=== PATIENT | female | born 1985 | race Caucasian/White ===

== ENCOUNTER 2023-12-08 06:36 | Day surgery (SDC) | payer OTHER ==
[2023-11-23 13:00] LABS: HEMATOCRIT 38.1 % (37.0-47.0); HEMOGLOBIN 12.9 g/dL (12.0-16.0); MEAN CORPUSCULAR HEMOGLOBIN 32.1 pg (28.0-32.0); MEAN CORPUSCULAR HGB CONC 33.9 g/dL (32.0-36.0); MEAN CORPUSCULAR VOLUME 94.8 fL (83.0-99.0); MEAN PLATELET VOLUME 9.2 fL (9.4-12.3); PLATELET COUNT,PLT 320 K/uL (150-400); RED BLOOD CELL COUNT 4.02 M/uL (4.10-5.30)
[2023-11-23 13:26] LABS: ALBUMIN 3.6 g/dL (3.4-5.0); BILIRUBIN TOTAL 1.6 mg/dL (0.2-1.0); CALCIUM 8.7 mg/dL (8.5-10.1); CARBON DIOXIDE,CO2 27.6 mmol/L (21.0-32.0); CREATININE 0.7 mg/dL (0.6-1.0); PROTEIN TOTAL,TP 7.3 g/dL (6.4-8.2)
[~2023-12-08 06:36] MED LIST: Scopalamine 1mg/3day Transdermal Patch TOP ONE
[2023-12-08] MEDS: Lactated Ringers 1,000 ML IV SCH ×2 (07:10→20:21)
[2023-12-08] MEDS ORDERED: dexmedeTOMIDine HCl 200 MCG/2 ML SDV ONE (07:20)
[2023-12-08] MEDS ORDERED: Water For Injection, Sterile 20 ML ONE (07:20)
[2023-12-08] MEDS ORDERED: propofoL 50 ML ONE ×2 (07:20→08:21)
[2023-12-08] MEDS ORDERED: Ondansetron 4 MG/2 ML SDV ONE (07:24)
[2023-12-08] MEDS ORDERED: fentaNYL 50 MCG/ML SDV IVPUSH PRN (07:50)
[2023-12-08] MEDS ORDERED: HYDROmorphone 1 MG/ML Syringe IVPUSH PRN (07:50)
[2023-12-08] MEDS ORDERED: droPERidol 5 MG/2 ML SDV IVPUSH PRN (07:50)
[2023-12-08] MEDS ORDERED: Metoclopramide 10 MG/2 ML SDV IVPUSH PRN (07:50)
[2023-12-08] MEDS ORDERED: Morphine 2 MG/ML SYRINGE IVPUSH PRN ×2 (07:50→20:09)
[2023-12-08] MEDS ORDERED: Albuterol 0.083% 2.5 MG/3 ML Neb Soln NEB PRN (07:50)
[2023-12-08] MEDS ORDERED: Ondansetron 4 MG/2 ML SDV IVPUSH PRN (07:50)
[2023-12-08] MEDS ORDERED: Naloxone 0.4 MG/ML SDV IVPUSH PRN ×2 (07:50→11:43)
[2023-12-08] MEDS ORDERED: Ketamine HCL/NACL, ISO-OSM 50 MG/5 ML Syringe ONE (08:02)
[2023-12-08] MEDS ORDERED: Dexamethasone 4 MG/ML 5 ML MDV ONE (08:04)
[2023-12-08] MEDS ORDERED: ceFAZolin 2 GM Vial ONE (08:04)
[2023-12-08] MEDS ORDERED: Fluorescein 5 ML Vial ONE (08:42)
[2023-12-08] MEDS ORDERED: Furosemide 40 MG/4 ML VIAL ONE (08:50)
[2023-12-08] MEDS ORDERED: Non-Formulary Medication 1 Each (Ondansetron Hcl [Ondansetron Hcl] 4 MG Tablet) PO PRN (09:23)
[2023-12-08] MEDS ORDERED: ALPRAZolam 0.5 MG Tab PO PRN (09:23)
[2023-12-08] MEDS: Ketorolac 30 MG/ML SDV IVPUSH SCH (11:40)
[2023-12-08] MEDS: Ketorolac 30 MG/ML SDV IVPUSH ONE (11:46)
[2023-12-08] MEDS: HYDROmorphone 2 MG/ML Syringe IVPUSH ONE (11:56)
[2023-12-08] MEDS: Acetaminophen 325 MG Tab PO PRN (15:10)
[2023-12-08] MEDS ORDERED: Ketorolac 30 MG/ML SDV IVPUSH SCH (15:30)
[2023-12-08] MEDS: Ondansetron 4 MG/2 ML SDV IVPUSH PRN (16:56)
[2023-12-08] MEDS: oxyCODONE 5 MG Tab PO PRN (17:08)
[2023-12-08] MEDS: Promethazine 25 MG/ML SDV IM PRN (20:00)
[2023-12-09 05:45] LABS: HEMATOCRIT 33.8 % (37.0-47.0); HEMOGLOBIN 11.6 g/dL (12.0-16.0); MEAN CORPUSCULAR HEMOGLOBIN 32.6 pg (28.0-32.0); MEAN CORPUSCULAR HGB CONC 34.3 g/dL (32.0-36.0); MEAN CORPUSCULAR VOLUME 94.9 fL (83.0-99.0); MEAN PLATELET VOLUME 9.9 fL (9.4-12.3); PLATELET COUNT,PLT 281 K/uL (150-400); RED BLOOD CELL COUNT 3.56 M/uL (4.10-5.30); WHITE BLOOD CELL COUNT,WBC 16.83 K/uL (3.9-11.3)
[2023-12-09 06:11] LABS: CALCIUM 8.5 mg/dL (8.5-10.1); CARBON DIOXIDE,CO2 24.5 mmol/L (21.0-32.0); CREATININE 0.7 mg/dL (0.6-1.0); POTASSIUM,K 3.7 mmol/L (3.5-5.1)
[2023-12-09 06:59] LABS: BAND ABSOLUTE MAN 0.17; BAND PERCENT MAN 1 %; LYMPHOCYTES ABSOLUTE MAN 1.68 K/uL (1.00-4.80); LYMPHOCYTES PERCENT MAN 10 % (24-44); MONOCYTES ABSOLUTE MAN 2.19 K/uL (0.00-0.80); MONOCYTES PERCENT MAN 13 % (0-8); SEG NEUTROPHILS ABSOLUTE MAN 12.45 K/uL (1.80-7.70); SEG NEUTROPHILS PERCENT MAN 74 % (41-71)
[2023-12-09] MEDS: Pantoprazole 40 MG Tab.CR PO SCH (08:09)
[2023-12-09] MEDS: Metoprolol Tartrate 50 MG Tab PO SCH (08:48)
== END 2023-12-09 09:45 | disposition home or self-care (01) ==
LOC: MW.SDS 06:36 → MW.OB 10:25 → MW.SDS 12-09 09:45
PROVIDERS: ATTEND Obstetrics & Gynecology
DX: D25.2 Subserosal leiomyoma of uterus (principal); N81.2 Incomplete uterovaginal prolapse; N80.03 Adenomyosis of the uterus; N72 Inflammatory disease of cervix uteri; I10 Essential (primary) hypertension; F41.9 Anxiety disorder, unspecified; F32.A Depression, unspecified; K21.9 Gastro-esophageal reflux disease without esophagitis; Z79.899 Other long term (current) drug therapy
CPT/HCPCS: 36415; 58260; 80048; 80053; 81025; 84703; 85025; 85027; 86850; 86900; 86901; A9270; J0690; J1100; J1170; J1885; J1940; J2405; J2550; J2704; J7120; 00944; J3490